=== PATIENT | female | born 1980 | race Caucasian/White ===

== ENCOUNTER → 2017-08-14 | Outpatient (CLI) | payer OTHER ==
--- NOTE | 2017-08-16 09:58 | PCVCIMAG ---
APPROVED REPORT Study performed: 08/14/2017 14:10:00 EXAM: Comprehensive 2D, Doppler, and color-flow Echocardiogram Patient Location: Echo lab BSA: 1.70 HR: 74 bpmBP: 116/76 mmHg Rhythm: NSR Other Information Study Quality: Adequate Indications Palpitations 2D Dimensions LVEF(%): 59.88 (>50%) IVSd: 8.30 (7-11mm) LVDd: 46.09 mm PWd: 9.23 (7-11mm) LVDs: 31.44 (25-40mm) Left Atrium: 34.41 (27-40mm) Aortic Root: 29.44 mm LV Single Plane 4CH: 58.60 % LV Single Plane 2CH: 62.01 %[employer] LVEF: 60.31 % Biplane EF: 60.4 % Volumes Left Atrial Volume (Systole) Single Plane 4CH: 44.19 mLSingle Plane 2CH: 67.38 mL LA ESV Index: 36.00 mL/m2 Aortic Valve AoV Peak Elkin.: 1.49 m/s AO Peak Gr.: 8.85 mmHgLVOT Max P.35 mmHg LVOT Max V: 1.04 m/s Mitral Valve E/A Ratio: 1.5 MV Decel. Time: 145.47 ms MV E Max Elkin.: 0.80 m/s MV A Elkin.: 0.52 m/s IVRT: 72.66 ms Pulmonary Valve PV Peak Elkin.: 0.97 m/sPV Peak Gr.: 3.78 mmHg Tricuspid Valve TR Peak Elkin.: 2.08 m/s TR Peak Gr.: 17.38 mmHg Left Ventricle The left ventricle is normal size. There is normal LV segmental wall motion. There is normal left ventricular wall thickness. Left ventricular systolic function is normal. The left ventricular ejection fraction is within the normal range. LVEF is 55-60%. The left ventricular diastolic function is normal. Right Ventricle The right ventricle is normal size. The right ventricular systolic function is normal. Atria The left atrium size is normal. The right atrium size is normal. Aortic Valve The aortic valve is normal in structure. No aortic regurgitation is present. There is no aortic valvular stenosis. Mitral Valve The mitral valve is normal in structure. There is no mitral valve regurgitation noted. No evidence of mitral valve stenosis. Tricuspid Valve The tricuspid valve is normal in structure. Trace tricuspid regurgitation with PAP of 24 mmHg. Pulmonic Valve The pulmonary valve is normal in structure. There is no pulmonic valvular regurgitation. Great Vessels The aortic root is normal in size. IVC is normal in size and collapses with >50% inspiration Pericardium There is no pericardial effusion. <Conclusion> The left ventricle is normal size. LVEF is 55-60%. The aortic valve is normal in structure. The mitral valve is normal in structure. There is no mitral valve regurgitation noted. The tricuspid valve is normal in structure. Trace tricuspid regurgitation with PAP of 24 mmHg. The pulmonary valve is normal in structure. There is no pulmonic valvular regurgitation. There is no pericardial effusion.
== END | disposition home or self-care (01) ==
LOC: PCVCIMAG 14:21
PROVIDERS: ATTEND Internal Medicine
DX: I10 Essential (primary) hypertension (principal); R00.2 Palpitations; E78.5 Hyperlipidemia, unspecified
CPT/HCPCS: 93306

== ENCOUNTER → 2018-05-29 | Outpatient (CLI) | payer OTHER ==
--- NOTE | 2018-05-29 15:55 | PCVCIMAG ---
APPROVED REPORT Study performed: 05/29/2018 08:15:37 EXAM: Comprehensive 2D, Doppler, and color-flow Echocardiogram Patient Location: Bedside Status: routine BSA: 1.69 HR: 70 bpmBP: 130/64 mmHg Rhythm: NSR Other Information Study Quality: Good Indications Dyspnea Palpitations 2D Dimensions IVSd: 7.22 (7-11mm)LVOT Diam: 20.00 (18-24mm) LVDd: 45.43 mm PWd: 7.42 (7-11mm)Ascending Ao: 29.06 (22-36mm) LVDs: 30.80 (25-40mm) Left Atrium: 34.64 (27-40mm) Aortic Root: 29.16 mm LV Single Plane 4CH: 67.85 % LV Single Plane 2CH: 67.11 % Biplane EF: 67.7 % Volumes Left Atrial Volume (Systole) Single Plane 4CH: 45.90 mLSingle Plane 2CH: 47.80 mL LA ESV Index: 30.00 mL/m2 Aortic Valve AoV Peak Elkin.: 1.34 m/s AO Peak Gr.: 7.13 mmHgLVOT Max P.02 mmHg LVOT Max V: 1.12 m/s MARIELA Vmax: 2.67 cm2 Mitral Valve E/A Ratio: 1.4 MV Decel. Time: 158.58 ms MV E Max Elkin.: 0.82 m/s MV A Elkin.: 0.57 m/s IVRT: 65.74 ms TDI E/Lateral E': 5.47E/Medial E': 7.45 Medial E' Elkin.: 0.11 m/s Lateral E' Elkin.: 0.15 m/s Pulmonary Valve PV Peak Elkin.: 1.01 m/sPV Peak Gr.: 4.15 mmHg Pulmonary Vein P Vein S: 0.67 m/sP Vein A: 0.29 m/s P Vein D: 0.33 m/sP Vein A Dur.: 83.0 msec P Vein S/D Ratio: 2.03 Tricuspid Valve TR Peak Elkin.: 1.88 m/sRAP Estimate: 7.00 mmHg TR Peak Gr.: 14.16 mmHg PA Pressure: 21.00 mmHg Left Ventricle The left ventricle is normal size. There is normal LV segmental wall motion. There is normal left ventricular wall thickness. Left ventricular systolic function is normal. The left ventricular ejection fraction is within the normal range. LVEF is >55%. The left ventricular diastolic function is normal. Right Ventricle The right ventricle is normal size. The right ventricular systolic function is normal. Atria The left atrium size is normal. The right atrium size is normal. Aortic Valve The aortic valve is normal in structure. No aortic regurgitation is present. There is no aortic valvular stenosis. Mitral Valve The mitral valve is normal in structure. There is no mitral valve regurgitation noted. No evidence of mitral valve stenosis. Tricuspid Valve The tricuspid valve is normal in structure. Trace tricuspid regurgitation. Pulmonary artery pressure is 21 mmHg. Pulmonic Valve The pulmonary valve is normal in structure. There is no pulmonic valvular regurgitation. Great Vessels The aortic root is normal in size. IVC is normal in size and collapses >50% with inspiration. Pericardium There is no pericardial effusion. <Conclusion> The left ventricle is normal size. LVEF is >55%. The aortic valve is normal in structure. The mitral valve is normal in structure. The tricuspid valve is normal in structure. Trace tricuspid regurgitation. Pulmonary artery pressure is 21 mmHg. The pulmonary valve is normal in structure. There is no pericardial effusion.
== END | disposition home or self-care (01) ==
LOC: PCVCIMAG 12:49
PROVIDERS: ATTEND Internal Medicine
DX: R00.2 Palpitations (principal)
CPT/HCPCS: 93306